=== PATIENT | male | born 1995 | race Caucasian/White ===

== ENCOUNTER → 2017-04-12 | Day surgery (SDC) | payer OTHER ==
[~2017-04-12] VITALS: Ht 182.9 cm; Wt 90.7 kg
[~2017-04-12] MED LIST: ADDE10CA PO; LIDOCAINE 2% INJ 100 MG/5 ML SDV (FOR ANES.) As Ordered ONE; LIDOCAINE W/EPINEPHRINE 1% 20ML VIAL As Ordered ONE; LR 1,000 ML IV ONE; LR 1,000 ML IV SCH; METOCLOPRAMIDE INJ 10MG/2ML VIAL (J2765) IV PRN; MIDAZOLAM INJ 2 MG/2 ML VIAL (J2250) As Ordered ONE; ONDANSETRON 4MG/2ML VIAL (J2405) IV PRN; PERCOCET 5MG/325MG TAB PO PRN; PROPOFOL 200 MG/20 ML VIAL As Ordered ONE; fentaNYL 100 MCG/2 ML INJECTION (J3010) As Ordered ONE; fentaNYL 100 MCG/2 ML INJECTION (J3010) IV PRN
[2017-04-12 10:20] VITALS: BP 138/82
--- NOTE | 2017-04-12 16:38 | RO ---
DATE OF PROCEDURE: 04/12/2017 PREOPERATIVE DIAGNOSIS: Abdominal wall cyst. POSTOPERATIVE DIAGNOSIS: Abdominal wall cyst. PROCEDURE: Excision of abdominal wall cyst. SURGEON: Dr. Joss Conn SHELLACKER: None. ANESTHESIA: IV sedation with 20 mL of 1% lidocaine with epi local. COMPLICATIONS: None. INDICATIONS FOR PROCEDURE: The patient is a 21-year-old male who presents with recurrent abdominal wall cyst that has come back after excision in the office. Recommendation to proceed with further excision in the operating room. Risks and benefits of procedure not limited to but including bleeding, infection and need for further surgery discussed in detail with the patient. Informed consent was obtained. Procedure was planned. DESCRIPTION OF PROCEDURE: The patient was brought back to operating room one, after sufficient sedation the abdomen was sterilely prepped and draped. Next, a time-out was done to confirm proper patient, proper procedure. Following that, 20 mL of lidocaine was injected into skin and subcutaneous tissues surrounding and underneath this lesion. Next, a 15 blade scalpel was used to make a 3 x 5 cm elliptical incision, incision was carried down through the skin all way to the level of the subcutaneous fat. Electrocautery was then used to carefully excise and remove this elliptical piece of tissue. Electrocautery was then used to control bleeding. Once all bleeding was controlled, #3-0 Vicryl interrupted suture was used to reapproximate the subcutaneous tissues followed by interrupted #3-0 nylon sutures to approximate the skin edges. The patient was then awakened from anesthesia, sent to the post-anesthesia care unit (PACU) in stable condition.
== END | disposition home or self-care (01) ==
LOC: M SDC 08:06
PROVIDERS: ATTEND Surgery
DX: L72.3 Sebaceous cyst (principal); F90.9 Attention-deficit hyperactivity disorder, unspecified type; Z88.1 Allergy status to other antibiotic agents; Z88.2 Allergy status to sulfonamides; Z87.891 Personal history of nicotine dependence; Z79.899 Other long term (current) drug therapy
CPT/HCPCS: 11406; 88304; J2250; J3010

== ENCOUNTER → 2018-08-12 | Outpatient (REF) | payer OTHER ==
[2018-08-12 12:09] LABS: HEMATOCRIT 45.5 % (42.0-52.0); MEAN CORPUSCULAR HEMOGLOBIN 27.1 pg (27.0-33.0); MEAN CORPUSCULAR VOLUME 82.3 fl (80.0-96.0); PLATELET COUNT, AUTOMATED 186 10^3/uL (150-450); RED BLOOD COUNT 5.53 10^6/uL (4.30-6.10); RED CELL DISTRIBUTION WIDTH 13.7 % (11.5-14.5); WHITE BLOOD COUNT 7.7 10^3/uL (4.0-10.0)
[2018-08-12 12:46] LABS: ALBUMIN 4.3 GM/DL (3.2-5.2); ALBUMIN/GLOBULIN RATIO 1.48 (1.00-1.93); ALKALINE PHOSPHATASE 88 U/L (45-117); ALT/SGPT 35 U/L (12-78); ANION GAP 8 MEQ/L (8-16); AST/SGOT 16 U/L (7-37); BILIRUBIN,TOTAL 0.6 MG/DL (0.2-1.0); BLOOD UREA NITROGEN 16 MG/DL (7-18); CALCIUM LEVEL 9.7 MG/DL (8.5-10.1); CARBON DIOXIDE LEVEL 28 MEQ/L (21-32); CHLORIDE LEVEL 105 MEQ/L (98-107); FREE T4 0.94 NG/DL (0.76-1.46); GLOMERULAR FILTRATION RATE > 60.0 (>60); GLUCOSE, FASTING 73 MG/DL (70-100); POTASSIUM SERUM 4.6 MEQ/L (3.5-5.1); SODIUM LEVEL 141 MEQ/L (136-145); THYROID STIMULATING HORMONE 0.656 uIU/ML (0.358-3.740); TOTAL PROTEIN 7.2 GM/DL (6.4-8.2)
== END ==
LOC: M SFHCPLAZ 09:15
DX: Z00.00 Encounter for general adult medical examination without abnormal findings (principal)

== ENCOUNTER → 2019-05-19 | Outpatient (REF) | payer OTHER ==
[~2019-05-19] MED LIST changes: -ADDE10CA PO; +ADDE10CA3 PO; -LIDOCAINE 2% INJ 100 MG/5 ML SDV (FOR ANES.) As Ordered ONE; -LIDOCAINE W/EPINEPHRINE 1% 20ML VIAL As Ordered ONE; -LR 1,000 ML IV ONE; -LR 1,000 ML IV SCH; -METOCLOPRAMIDE INJ 10MG/2ML VIAL (J2765) IV PRN; -MIDAZOLAM INJ 2 MG/2 ML VIAL (J2250) As Ordered ONE; -ONDANSETRON 4MG/2ML VIAL (J2405) IV PRN; -PERCOCET 5MG/325MG TAB PO PRN; -PROPOFOL 200 MG/20 ML VIAL As Ordered ONE; -fentaNYL 100 MCG/2 ML INJECTION (J3010) As Ordered ONE; -fentaNYL 100 MCG/2 ML INJECTION (J3010) IV PRN
[2019-05-19 13:07] LABS: BASO # 0.1 10^3/uL (0.0-0.2); BASO % 0.6 % (0.0-1.0); EOS # 0.2 10^3/uL (0.0-0.50); EOS % 2.8 % (0.0-3.0); HEMATOCRIT 44.2 % (42.0-52.0); HEMOGLOBIN 14.5 g/dl (13.5-17.5); LYMPH % 24.9 % (24.0-44.0); MEAN CORPUSCULAR HEMOGLOBIN 26.9 pg (27.0-33.0); MEAN CORPUSCULAR HGB CONC 32.8 g/dl (32.0-36.5); MEAN CORPUSCULAR VOLUME 81.9 fl (80.0-96.0); MONO # 0.7 10^3/uL (0.0-0.8); MONO % 8.5 % (0.0-5.0); NEUTROPHILS # 5.1 10^3/uL (1.8-7.7); NEUTROPHILS % 63.1 % (36.0-66.0); PLATELET COUNT, AUTOMATED 186 10^3/uL (150-450); WHITE BLOOD COUNT 8.1 10^3/uL (4.0-10.0)
[2019-05-19 13:41] LABS: ALBUMIN 4.3 GM/DL (3.2-5.2); ALT/SGPT 36 U/L (12-78); BILIRUBIN,TOTAL 0.4 MG/DL (0.2-1.0); BLOOD UREA NITROGEN 17 MG/DL (7-18); CALCIUM LEVEL 9.2 MG/DL (8.5-10.1); CARBON DIOXIDE LEVEL 28 MEQ/L (21-32); CHLORIDE LEVEL 106 MEQ/L (98-107); CREATININE FOR GFR 0.96 MG/DL (0.70-1.30); GLOMERULAR FILTRATION RATE > 60.0 (>60); GLUCOSE, FASTING 86 MG/DL (70-100); LIPASE 114 U/L (73-393); POTASSIUM SERUM 4.8 MEQ/L (3.5-5.1); SODIUM LEVEL 139 MEQ/L (136-145); TOTAL PROTEIN 7.2 GM/DL (6.4-8.2)
[2019-05-25 14:24] LABS: AMPHETAMINE, URINE GC/MS 2859 ng/mL (Cutoff=500); CREATININE, URINE 140.1 mg/dL (20.0-300.0); METHAMPHETAMINE, URINE Negative (Cutoff=500)
== END ==
LOC: M SFHCPLAZ 10:09
PROVIDERS: ATTEND Nurse Practitioner Family
DX: F90.2 Attention-deficit hyperactivity disorder, combined type (principal); R10.9 Unspecified abdominal pain

== ENCOUNTER → 2020-11-11 | Outpatient (REF) | payer BC, OTHER, SELFPAY ==
[2020-11-11 09:39] LABS: SEMEN APPEARANCE OPAQUE (OPAQUE); SEMEN VISCOSITY LIQUID (LIQUID); SEMEN VOLUME 3.1 ml (2.0-5.0); WBC CONCENTRATION >1 M/ml (<=1 M/ml)
[2020-11-11 09:40] LABS: SPERM CONCENTRATION 29.9 M/ml (>=15.0)
== END ==
LOC: M LAB REF 09:11
PROVIDERS: ATTEND Obstetrics & Gynecology Obstetrics
DX: Z31.41 Encounter for fertility testing (principal)

== ENCOUNTER → 2022-05-21 | Outpatient (REF) | payer OTHER ==
[2022-05-21 09:20] LABS: SEMEN APPEARANCE OPAQUE (OPAQUE); SEMEN VISCOSITY LIQUID (LIQUID); SEMEN VOLUME 5.5 ml (2.0-5.0); SPERM CONCENTRATION 37.1 M/ml (>=15.0); WBC CONCENTRATION <=1 M/ml (<=1 M/ml)
== END ==
LOC: M LAB REF 09:07
PROVIDERS: ATTEND Obstetrics & Gynecology Reproductive Endocrinology
DX: Z31.41 Encounter for fertility testing (principal)